=== PATIENT | male | born 1955 | race Caucasian/White ===

== ENCOUNTER 2018-03-11 19:52 | Emergency (ER) | payer OTHER ==
[~2018-03-11] VITALS: Ht 170.2 cm; Wt 69.5 kg
[2018-03-11] MEDS ORDERED: KETOROLAC 30 MG/1 ML ONE (20:29)
[2018-03-11] MEDS ORDERED: MORPHINE SULFATE 4 MG/ML, 1ML ONE (20:29)
[2018-03-11 20:30] LABS: BASOPHILS # (AUTO) 0.01 x10^3/uL (0-0.1); BASOPHILS % (AUTO) 0 % (0-1); EOSINOPHILS # (AUTO) 0.21 x10^3/uL (0-0.4); EOSINOPHILS % (AUTO) 2 % (1-7); LYMPHOCYTES # (AUTO) 1.56 x10^3/uL (1-3.4); LYMPHOCYTES % (AUTO) 14 % (22-44); MD NO; MEAN CORPUSCULAR HEMOGLOBIN 30.9 pg (27.5-34.5); MEAN CORPUSCULAR HGB CONC 33.7 g/dL (33.2-36.2); MEAN CORPUSCULAR VOLUME 91.7 fL (81-97); MEAN PLATELET VOLUME 7.9 fL (7.4-10.4); MONOCYTES # (AUTO) 0.68 x10^3/uL (0.2-0.8); MONOCYTES % (AUTO) 6 % (2-9); NEUTROPHILS % (AUTO) 79 % (42-75); PLATELET COUNT 226 x10^3/uL (130-400); RED BLOOD COUNT 4.79 x10^6/uL (4.38-5.82); RED CELL DISTRIBUTION WIDTH 13.9 % (9.4-14.8)
[2018-03-11] MEDS ORDERED: KETOROLAC 30 MG/1 ML IVPush ONE (20:30)
[2018-03-11] MEDS ORDERED: MORPHINE SULFATE 4 MG/ML, 1ML IVPush PRN (20:30)
[2018-03-11] MEDS ORDERED: SIMV10TA3 PO (20:33)
[2018-03-11 20:42] LABS: CULTURE INDICATED? NO; MICROSCOPIC AUTO
[2018-03-11 20:43] LABS: ALANINE AMINOTRANSFERASE 26 U/L (12-78); ALBUMIN 4.1 g/dL (3.4-5.0); ANION GAP 11 mmol/L (5-15); CALCIUM 8.9 mg/dL (8.5-10.1); CHLORIDE 111 mmol/L (98-107); CREATININE 1.13 mg/dL (0.7-1.3)
[2018-03-11 20:45] LABS: ALKALINE PHOSPHATASE 83 U/L (45-117); BILIRUBIN,TOTAL 0.6 mg/dL (0.2-1.0); TOTAL PROTEIN 7.6 g/dL (6.4-8.2)
[2018-03-11] MEDS ORDERED: OMNIPAQUE 350 MG/ML, 100ML BOTTLE ONE (21:22)
[2018-03-11 22:32] VITALS: BP 144/90
== END 2018-03-11 23:05 | disposition home or self-care (01) ==
LOC: ED 22:45
DX: N13.2 Hydronephrosis with renal and ureteral calculous obstruction (principal); N28.89 Other specified disorders of kidney and ureter; R31.9 Hematuria, unspecified; N23 Unspecified renal colic; F17.200 Nicotine dependence, unspecified, uncomplicated; Z88.0 Allergy status to penicillin
CPT/HCPCS: 36415; 74176; 74177; 80053; 81001; 83690; 85025; 96374; 96375; 99285; J1885; Q9967

== ENCOUNTER 2020-12-10 03:03 | Emergency (ER) | payer OTHER ==
[~2020-12-10] VITALS: Ht 175.3 cm; Wt 67.0 kg
[~2020-12-10 03:03] MED LIST: SIMV10TA18 PO
[2020-12-10 03:10] VITALS: BP 138/90
[2020-12-10] MEDS ORDERED: DIAZEPAM 5 MG TABLET ONE (03:29)
[2020-12-10] MEDS ORDERED: KETOROLAC 60 MG/2 ML ONE (03:29)
[2020-12-10] MEDS ORDERED: HYDROcodone/APAP 5/325 TABLET ONE (03:30)
[2020-12-10] MEDS ORDERED: KETOROLAC 30 MG/1 ML IM ONE (03:30)
[2020-12-10] MEDS ORDERED: DIAZEPAM 5 MG TABLET PO ONE (03:30)
[2020-12-10] MEDS ORDERED: HYDROcodone/APAP 5/325 TABLET PO ONE (03:30)
== END 2020-12-10 04:21 | disposition home or self-care (01) ==
LOC: ED 03:33
DX: S16.1XXA Strain of muscle, fascia and tendon at neck level, initial encounter (principal); S39.012A Strain of muscle, fascia and tendon of lower back, initial encounter; S29.012A Strain of muscle and tendon of back wall of thorax, initial encounter; Z90.49 Acquired absence of other specified parts of digestive tract; Z88.0 Allergy status to penicillin; F17.210 Nicotine dependence, cigarettes, uncomplicated; X58.XXXA Exposure to other specified factors, initial encounter; Y93.89 Activity, other specified; Y92.89 Other specified places as the place of occurrence of the external cause; Y99.8 Other external cause status
CPT/HCPCS: 96372; 99283; 99406; J1885

== ENCOUNTER 2021-05-29 17:22 | Emergency (ER) | payer OTHER ==
[~2021-05-29] VITALS: Ht 172.7 cm; Wt 65.0 kg
[2021-05-29 17:50] VITALS: BP 139/93
--- NOTE | 2021-05-29 19:59 | NUR ---
pt to room from lobby
[2021-05-29] MEDS ORDERED: KETOROLAC 30 MG/1 ML IM ONE (20:30)
[2021-05-29] MEDS ORDERED: DIAZEPAM 5 MG TABLET PO ONE (20:30)
[2021-05-29] MEDS ORDERED: DIAZEPAM 5 MG TABLET ONE (20:37)
[2021-05-29] MEDS ORDERED: KETOROLAC 30 MG/1 ML ONE (20:37)
--- NOTE | 2021-05-29 21:24 | NUR ---
Patient given discharge instructions and they have confirmed that they understand the instructions. Patient ambulatory with steady gait. NAD, all questions answered appropriately, denies additional needs at this time. No personal belongings left in room after discharge.
== END 2021-05-29 21:26 | disposition home or self-care (01) ==
LOC: ED 21:04
DX: S39.012A Strain of muscle, fascia and tendon of lower back, initial encounter (principal); X58.XXXA Exposure to other specified factors, initial encounter; Y93.89 Activity, other specified; Y92.89 Other specified places as the place of occurrence of the external cause; Y99.8 Other external cause status
CPT/HCPCS: 72110; 96372; 99283; J1885